=== PATIENT | male | born 1945 | race Caucasian/White ===

== ENCOUNTER 2025-01-12 14:16 | Emergency (ER) | payer MEDICAID ==
[~2025-01-12] VITALS: Ht 170.2 cm; Wt 61.2 kg
[2025-01-12 14:59] LABS: PLATELET COUNT (AUTO) 238 K/uL (150-450); RED BLOOD CELL COUNT(AUTO) 4.87 MIL/uL (4.5-6.0); RED CELL DISTRIBUTION WIDTH 16.9 % (11.5-15.0); WHITE BLOOD COUNT (AUTO) 11.6 K/uL (4.3-11.0)
[2025-01-12 15:14] LABS: APPEARANCE,URINE CLEAR (CLEAR); BLOOD, URINE Negative Ery/uL (NEGATIVE); LEUKOCYTE ESTERASE ,URINE Negative (NEGATIVE); UGLUCOSE >=1000 mg/dL (NEGATIVE)
[2025-01-12 15:15] LABS: NITRITE, URINE NEGATIVE (NEGATIVE)
[2025-01-12 15:16] LABS: ADD URINE CULTURE NO; CALCIUM OXALATE CRYSTALS,UR Rare /HPF (None Seen); SQUAMOUS EPITHELIAL CELL,UR None Seen /HPF (None Seen)
[2025-01-12 15:17] LABS: SERUM AMMONIA 13 umol/L (11-32)
[2025-01-12 15:24] LABS: LACTIC ACID 2.1 mmol/L (0.4-2.0)
[2025-01-12 15:29] LABS: AMPHETAMINE, URINE NEGATIVE (NEGATIVE); BARBITURATE, URINE NEGATIVE (NEGATIVE); BENZODIAZEPINE, URINE NEGATIVE (NEGATIVE); CANNABINOID, URINE NEGATIVE (NEGATIVE); COCCAINE, URINE NEGATIVE (NEGATIVE); OPIATE, URINE NEGATIVE (NEGATIVE)
[2025-01-12 15:35] LABS: INR 1.08 (0.91-1.10)
[2025-01-12 15:46] LABS: CALCIUM, SERUM 8.8 mg/dL (8.5-10.1); CREATININE 1.9 mg/dL (0.6-1.3); SODIUM SERUM 134 mmol/L (136-145); UREA NITROGEN, BLOOD 29 mg/dL (7-18)
[2025-01-12 15:53] LABS: ASPARTATE AMINOTRANSFERASE 21 U/L (15-37); TOTAL PROTEIN, SERUM 7.0 g/dL (6.4-8.2)
[2025-01-12 16:33] LABS: NT-PRO BNP 9019 pg/mL (0-125)
[2025-01-12 17:30] LABS: ALCOHOL, BLOOD < 3 mg/dL (0-10)
[2025-01-12 18:24] VITALS: BP 136/78; O2SAT 99
[2025-01-12] MEDS: FUROSEMIDE 40 MG/4 ML VIAL IV ONE (18:24)
[2025-01-12 19:53] VITALS: TEMP 101.2
[2025-01-12] MEDS ORDERED: ACETAMINOPHEN ES 500 MG TABLET ONE (19:53)
[2025-01-12] MEDS: ACETAMINOPHEN ES 500 MG TABLET PO ONE (19:53)
== END 2025-01-12 21:00 | disposition short-term general hospital (02) ==
LOC: ER 14:25
DX: R55 Syncope and collapse (principal); R41.82 Altered mental status, unspecified; R07.9 Chest pain, unspecified; E11.9 Type 2 diabetes mellitus without complications; I11.0 Hypertensive heart disease with heart failure; I50.9 Heart failure, unspecified; Z20.822 Contact with and (suspected) exposure to COVID-19; Z79.899 Other long term (current) drug therapy
CPT/HCPCS: 99291; 96374; 93005; 71045; 70450; 74176; 82140; 85025; 80048; 80162; 83605 ×2; 80076; 83735; 81001; 36415; 84439; 84443; 84484 ×2; 85730; 83880; 87426; 80143; 80320; 80307; J1938; G0480